=== PATIENT | female | born 1935 | race Caucasian/White ===

== ENCOUNTER → 2018-03-14 | Outpatient (CLI) | payer OTHER ==
[~2018-03-14] MED LIST: ACYC-114 PO; AMOX1TAB64 PO; ASCO500C2 PO; ATOR20TA PO; MULT-658 PO; NITR100C PO; NITR50CA11 PO; OLME1TAB32 PO; SENN1TAB67 PO; VITA100022 PO
[2018-03-14 12:27] LABS: PROTHROMBIN TIME 10.4 Seconds (9.6-11.5)
== END | disposition home or self-care (01) ==
LOC: STAR 10:47
PROVIDERS: ATTEND Neurological Surgery
DX: Z01.818 Encounter for other preprocedural examination (principal); M48.061 Spinal stenosis, lumbar region without neurogenic claudication
CPT/HCPCS: 36415; 71046; 85610; 85730; 93005

== ENCOUNTER → 2018-04-14 | Outpatient (CLI) | payer OTHER ==
[~2018-04-14] MED LIST changes: +ACET-1600 PO; +AMLO5TAB4 PO; +ATOR20TA9 PO; +BISA10SU2 PR; +DIPH25CA61 PO; +HYDR12.53 PO; +LOSA100T2 PO; +MAGN400O7 PO; +PROM25AM2 IM; +SENN1TAB7 PO; +TIZA2CAP PO
== END | disposition home or self-care (01) ==
LOC: RAD 12:01
PROVIDERS: ATTEND Registered Nurse Registered Nurse First Assistant
DX: M43.10 Spondylolisthesis, site unspecified (principal); M48.07 Spinal stenosis, lumbosacral region
CPT/HCPCS: 72158